=== PATIENT | female | born 1990 | race Caucasian/White ===

== ENCOUNTER → 2017-02-08 | Outpatient (CLI) | payer BC ==
[~2017-02-08] MED LIST: LABETALOL HCL300 MG PO; MOTRIN-DPS800 MG PO; NIPPLECREAM TP; PRENATAL VIT1 TAB PO
== END | disposition home or self-care (01) ==
LOC: PTH.S 15:30
DX: R30.0 Dysuria (principal)

== ENCOUNTER 2017-04-16 09:00 | Outpatient (CLI) | payer BC ==
[2017-04-23] MEDS ORDERED: PRENATAL VIT1 TAB PO (19:42)
[2017-04-23] MEDS ORDERED: NIPPLECREAM TP (19:42)
[2017-04-23] MEDS ORDERED: MOTRIN-DPS800 MG PO (19:42)
[2017-04-23] MEDS ORDERED: LABETALOL HCL300 MG PO (19:42)
== END 2017-04-16 10:10 | disposition home or self-care (01) ==
LOC: 2LDRP 09:00 → BC 09:00
DX: O42.92 Full-term premature rupture of membranes, unspecified as to length of time between rupture and onset of labor (principal); Z3A.38 38 weeks gestation of pregnancy

== ENCOUNTER 2017-04-19 06:35 | Inpatient (IN) | payer BC ==
[~2017-04-19] VITALS: Ht 175.3 cm; Wt 103.4 kg
--- NOTE | ~2017-04-19 | HP ---
ADMIT: 04/19/2017 RM/LOC: 201 [facility] MR#: [id number] [facility]#: [id number] [address] [address] [place] [address] History and Physical SEX: F AGE: 27 : 1990 DATE OF SERVICE: CHIEF COMPLAINT: Induction of labor. HISTORY OF PRESENT ILLNESS: The patient is a 27-year-old, 2, para 0-0- 1-0 with an intrauterine at 39 and 0/7th weeks by a 6-week ultrasound, who presents to Labor and Delivery for induction of labor at term secondary to chronic hypertension. PAST MEDICAL HISTORY: 1. Chronic hypertension. 2. Obesity. PAST SURGICAL HISTORY: None. FAMILY HISTORY: Mother, father, and brother with hypertension. Maternal grandmother with breast cancer. SOCIAL HISTORY: The patient denies alcohol, tobacco, or illicit drug use. 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 MEDICATIONS: 1. vitamins 1 tablet p.o. daily. 2. Labetalol 300 mg p.o. b.i.d. ALLERGIES: NO KNOWN MEDICAL ALLERGIES. REVIEW OF SYSTEMS: The patient denies vaginal bleeding, loss of fluid, uterine contractions, or decreased movement. OBSTETRICAL LABS: Blood type A positive, antibody screen negative, RPR nonreactive, rubella immune, HIV negative, gonorrhea and chlamydia negative. Hepatitis B surface antigen negative. Quad screen negative. Diabetic screen 112. Group B strep negative. PHYSICAL EXAMINATION: GENERAL: Well-developed, well-nourished, white female, alert and oriented x3 in no acute distress. VITAL SIGNS: Blood pressure 131/90, pulse 83, oxygen saturation 98% on room air. Height 5 feet 9 inches and weight 228 pounds. HEENT: Head is normocephalic, atraumatic. Pupils are equal and round. Extraocular muscles are intact. NECK: Supple. Trachea midline. Thyroid not palpable. HEART: Regular rate and rhythm. LUNGS: Clear to auscultation bilaterally. ABDOMEN: Soft, nontender, and gravid. EXTREMITIES: 1+ edema bilaterally. NEUROLOGIC: Cranial nerves II through XII grossly intact. 2+ deep tendon reflexes noted. ADMIT: 04/19/2017 RM/LOC: 201 [facility] MR#: [id number] [address] [address] [place] [address] [place] [address] History and Physical SEX: F AGE: 27 : 1990 PELVIC: Sterile vaginal examination by the nurse on admission reveals the cervix to be 4 cm dilated, 60% effaced, -2 station. heart tones are in the 130s with 15 x 15 accelerations, moderate long-term variability, and no decelerations. Irregular uterine contractions are noted on the monitor. ASSESSMENT AND PLAN: 1. This is a 27-year-old, 2, para 0-0-1-0 with an intrauterine at 39 and 0/7th weeks by a 6-week ultrasound, who presents to Labor and Delivery for induction of labor at term secondary to chronic hypertension. 2. Group B strep negative. No prophylaxis will be provided. 3. Fetus is vertex and overall reassuring. Bernice Gastelum MD/ dago JOB #: [id number] CC: Bernice Gastelum, Attending Physician Bernice Gastelum, Family Physician
--- NOTE | ~2017-04-19 | FD ---
ADMIT: 04/19/2017 RM/LOC: 201 [facility] MR#: [id number] [address] [facility] [address] [place] [id number] [place] [address] [place] [id number] Final Diagnosis SEX: F AGE: 27 : 1990 ADMISSION DATE: 04/19/2017 DISCHARGE DATE: 04/21/2017 FINAL DIAGNOSIS: 1. Status post spontaneous vaginal delivery. 2. Chronic hypertension. 3. Obesity. PROCEDURE: 1. Spontaneous vaginal delivery. 2. Removal of epidural catheter. Bernice Gastelum MD/ roman JOB #: [id number] CC: Bernice Gastelum MD, Attending Physician Bernice Gastelum MD, Family Physician
[2017-04-23] MEDS ORDERED: PRENATAL VIT1 TAB PO (19:42)
[2017-04-23] MEDS ORDERED: NIPPLECREAM TP (19:42)
[2017-04-23] MEDS ORDERED: MOTRIN-DPS800 MG PO (19:42)
[2017-04-23] MEDS ORDERED: LABETALOL HCL300 MG PO (19:42)
--- NOTE | 2017-05-10 08:14 | OR ---
ADMIT: 04/19/2017 RM/LOC: 201 [facility] MR#: [id number] [address] [address] [address] DAVE [address] [place] [address] Operative/Delivery Room Report SEX: F AGE: 27 : 1990 SURGERY DATE: 04/19/2017 SURGEON: Bernice Gastelum MD The patient delivered a viable male by spontaneous vaginal delivery at 1514 hours. The infant was placed on the mother's abdomen, and the cord was doubly clamped and cut. The was handed off to the awaiting nurse. Cord blood was sent. The 's weight was 3640 g. scores were 8 and 9. The placenta then delivered spontaneously intact with a three-vessel cord. Twenty units of Pitocin were infused with intravenous fluids. An examination of the perineum revealed a second-degree laceration, which extended to the bilateral labia. This was repaired with 3-0 Vicryl in the usual fashion with excellent hemostasis. Estimated blood loss for the entire procedure was 400 mL. The patient and are in her room in stable condition. The epidural catheter was removed intact without difficulty at the conclusion of the procedure. Berince Gastelum MD/ dago JOB #: [id number] CC: Bernice Gastelum, Attending Physician Bernice Gastelum, Family Physician
== END 2017-04-21 12:20 | disposition home or self-care (01) | DRG 774 ==
LOC: 2LDRP 06:35 → BC 06:35 → 2LDRP 06:36 → BC 04-26 11:20
PROVIDERS: ADMIT Obstetrics & Gynecology
PROC: 10907ZC Drainage of Amniotic Fluid, Therapeutic from Products of Conception, Via Natural or Artificial Opening (ICD-10-PCS; principal; 2017-04-19)
PROC: 10E0XZZ Delivery of Products of Conception, External Approach (ICD-10-PCS; principal; 2017-04-19)
PROC: 0KQM0ZZ Repair Perineum Muscle, Open Approach (ICD-10-PCS; principal; 2017-04-19)
DX: O10.02 Pre-existing essential hypertension complicating childbirth (principal); O70.1 Second degree perineal laceration during delivery; Z3A.39 39 weeks gestation of pregnancy; Z37.0 Single live birth